=== PATIENT | female | born 1985 | race Two or more races ===

== ENCOUNTER 2016-05-13 10:36 | Day surgery (SDC) | payer OTHER ==
[~2016-05-13 10:36] MED LIST: IV START KIT ONE; LACTATED RINGERS 1,000 ML ONE
[2016-05-13] MEDS ORDERED: FENTANYL 100 MCG/2 ML VIAL ONE (11:47)
[2016-05-13] MEDS ORDERED: PROPOFOL 20 ML IV ONE (11:58)
[2016-05-13] MEDS ORDERED: ONDANSETRON 4 MG/2ML 2 ML VIAL ONE (11:58)
[2016-05-13] MEDS ORDERED: METOCLOPRAMIDE HCL 5 MG/ML 2ML VIAL ONE (11:58)
[2016-05-13] MEDS ORDERED: KETOROLAC TROMETHAMINE 30 MG/ML 1 ML VIAL ONE (11:58)
[2016-05-13] MEDS ORDERED: ROCURONIUM BROMIDE 10 MG/ML DOSE IV ONE (11:58)
[2016-05-13] MEDS ORDERED: MORPHINE SULFATE 10 MG/ML SYRINGE ONE (12:09)
[2016-05-13] MEDS ORDERED: MORPHINE SULFATE 4 MG/ML SYRINGE IV PRN (12:12)
[2016-05-13] MEDS ORDERED: PROMETHAZINE HCL 25 MG/ML VIAL IM PRN (12:12)
[2016-05-13] MEDS ORDERED: ATROPINE SULFATE 0.4 MG/1 ML VIAL IV PRN (12:12)
[2016-05-13] MEDS ORDERED: NALOXONE HCL 0.4 MG/ML VIAL IV PRN (12:12)
[2016-05-13] MEDS ORDERED: ONDANSETRON 4 MG/2ML 2 ML VIAL IV PRN ×2 (12:12→13:46)
[2016-05-13] MEDS ORDERED: HYDRALAZINE HCL 20 MG/1 ML VIAL IV PRN (12:12)
[2016-05-13] MEDS ORDERED: MEPERIDINE 25 MG/ML SYRINGE IV PRN (12:12)
[2016-05-13] MEDS ORDERED: LACTATED RINGERS 1,000 ML IV SCH (12:15)
--- NOTE | 2016-05-13 13:00 | PCMBPN ---
Brief Post Op Note: Date of Procedure: 05/13/16 Start Time: [] Preoperative Diagnosis: 1. [Ovarian cyst] Postoperative Diagnosis: 1. [Same] Procedure: [laparoscopic cystectomy] Surgeon: Rosey Giordano DO Assist:[Awa Tapia] Anesthesia: [general] Findings: [Large Right ovarian teratoma] Condition: [stable] Complications: [none] IV Fluids: [1300] mLs of LR [] Urine Output: [150] mLs Estimated Blood Loss: [15] mLs Tourniquet Time: [N/A] Specimens: [N/A] Implants: [none] Drains: [N/A] JOb# [id number]
[2016-05-13] MEDS ORDERED: KETOROLAC TROMETHAMINE 30 MG/ML 1 ML VIAL IV PRN (13:46)
[2016-05-13] MEDS ORDERED: DIPHENHYDRAMINE HCL 50 MG/1 ML VIAL IV PRN (13:46)
[2016-05-13] MEDS ORDERED: HYDROMORPHONE HCL 1 MG/ML SYRINGE IV PRN (13:46)
[2016-05-13] MEDS ORDERED: ACETAMINOPHEN 325 MG TABLET PO PRN (13:46)
[2016-05-13] MEDS ORDERED: OXYCODONE/ACETAMINOPHEN 5/325 MG TABLET PO PRN (13:46)
--- NOTE | 2016-05-13 13:48 | OP ---
Alix Wilkerson : 1985 DATE OF PROCEDURE: 05/13/2016 PREOPERATIVE DIAGNOSIS: Ovarian cyst. POSTOPERATIVE DIAGNOSIS: Ovarian teratoma. PROCEDURE: Laparoscopic cystectomy. SURGEON: Rosey Giordano D.O. YOUTUBER: Awa Tapia. ANESTHESIA: General. FINDINGS: Large right ovarian teratoma. CONDITION: Stable. COMPLICATIONS: None. IV FLUIDS: 1300 mL of lactated ringers. URINE OUTPUT: 150 mL of clear yellow urine. ESTIMATED BLOOD LOSS: 15 mL. SPECIMENS: Ovarian teratoma. IMPLANTS: None. PROCEDURE: Patient was taken back to the operating room with IV fluids running where general anesthesia was easily obtained. She was prepped and draped in a dorsolithotomy position with Manuel stirrups in a normal sterile fashion. A speculum was placed in the patient's vagina and an acorn uterine manipulator was gently introduced into the uterine cavity. The speculum was removed and attention was then turned to the patient's abdomen. An approximately 11 mm infraumbilical incision was made and the abdomen was entered with Optiview trocar under direct visualization. Once in the abdominal cavity intraabdominal survey revealed some omental adhesions to the anterior abdominal wall and a large right ovarian cyst. The remainder of her pelvic organs appeared normal. Under direct visualization two additional 5 mm ports were placed on either side of the patient's abdomen. The cyst was grasped with a laparoscopic grasper and monopolar mattie were used to enter the cyst wall. The cyst wall was drained of approximately 30 mL of purulent material. The cyst cavity was grasped with the laparoscopic grasper and monopolar mattie were used to excise the cyst wall. Once removed from the ovary the cyst was placed in an Endocatch bag and the Endocatch bag was removed from the patient's abdomen without difficulty. Once the cyst was removed from the patient's abdomen a last look was taken at all operative sites, they were found to be hemostatic and the procedure was determined to be complete. All instruments were removed from the patient's abdomen and vagina. The fascia was closed with 0 Vicryl on a ur6 needle. The skin was closed with 4-0 Monocryl and the two remaining abdominal ports were closed with surgical skin glue. The cervix was found to be hemostatic after all instruments were removed from the vagina and patient was easily aroused from anesthesia. She was transferred to recovery in stable condition. JOB: [id number]
[2016-05-13] MEDS ORDERED: OXYCODONE/ACETAMINOPHEN 5/325 MG TABLET ONE (15:07)
--- NOTE | 2016-05-17 12:17 | SURGPATH ---
[facility] [address] [place] [id number] Patient Name: GUILLERMINA FALK MR#: [id number] : 1985 Gender: F Specimen #: [id number] Collected: 05/13/2016 Received: 05/16/2016 Reported: 05/17/2016 Submitting Phys: ASA RMASAY [facility] Clinical History / Pre-Operative Diagnosis: Dermoid cyst Specimen Source / Surgical Procedure Performed: Right ovarian dermoid cyst Interpretation: RIGHT OVARIAN CYST, EXCISION: - MATURE CYSTIC TERATOMA (DERMOID CYST) Electronically Signed Out Dony Rain M.D. Gross Description: The specimen is received in formalin labeled with the patient's name and "dermoid cyst". The specimen consists of a 5.0 x 4.5 x 4.0 cm, 21 g aggregate of dolan-pringle soft tissue fragments consistent with a disrupted cyst and cyst contents. The contents are dolan-nunn greasy and grumous with a small amount of hair and a hard tooth-like structure. A-C. patient services representative ADRIA Wilkinson Microscopic Description: The cyst is lined by squamous epithelium and the cyst wall contains skin adnexal structures, and adipose tissue. There are also a few follicular cysts. No immature elements or malignant features are identified. 1: [id number] D27.0
== END 2016-05-13 15:20 | disposition home or self-care (01) ==
LOC: SDC 10:36
PROVIDERS: ATTEND Obstetrics & Gynecology
PROC: 0UB04ZZ Excision of Right Ovary, Percutaneous Endoscopic Approach (ICD-10-PCS; principal; 2016-05-13)
DX: D27.0 Benign neoplasm of right ovary (principal); N92.6 Irregular menstruation, unspecified; E66.8 Other obesity; Z68.39 Body mass index [BMI] 39.0-39.9, adult
CPT/HCPCS: 58662; J3010; J2270; A9270; J2765; J1885; J2405; J7120; J7030